=== PATIENT | male | born 1955 | race Caucasian/White ===

== ENCOUNTER → 2021-01-16 10:35 | Outpatient (CLI) | payer MEDICARE, OTHER, SELFPAY ==
--- NOTE | ~2021-01-16 | MR_ITS ---
EXAMINATION: MR knee RT wo con DATE: 01/16/2021 11:43 INDICATION: A couple months of intermittent generalized right knee pain TECHNIQUE: Magnetic resonance imaging (MRI) of the right knee was performed without intravenous contr ast. Sequences included coronal PD-weighted FSE, coronal PD-weighted FS FSE, sagittal T2-weighted FS E, sagittal PD-weighted FS FSE and axial PD weighted fat saturated FSE. COMPARISON: 10/08/2012 FINDINGS: Medial compartment: Again seen is a smaller than normal body and posterior horn of the medial meniscus consistent with pr ior partial meniscectomy. No significant change in linear mild increased signal extending to the supe rior articular surface at the peripheral third of the posterior horn of the medial meniscus which rem ains of less than fluid signal intensity and equivocal for residual versus previously repaired longit udinal horizontal tear. Relatively stable appearance of partial-thickness cartilage loss throughout t he weightbearing medial femoral condyle and medial tibial plateau. This involves greater than 50% the cartilage thickness at the central weightbearing medial femoral condyle with mild underlying cortica l irregularity and minimal subarticular edema. Additional marrow edema underlying small central osteo phytes at the site of additional deep chondral ulceration at the lateral aspect of the anterior weigh tbearing medial femoral condyle. Tiny focus of subarticular edema at the central aspect of the medial tibial plateau. Lateral compartment: Lateral meniscus is normal. Interval progression of partial-thickness cartilage loss along the latera l tibial plateau with relatively smooth chondral surface and along the weightbearing lateral femoral condyle where there is also deep chondral fissuring and scattered small central/subchondral osteophyt es but no subarticular edema. Patellofemoral compartment: Slight progression in partial-thickness cartilage loss throughout the patella most severe at the ceph alad aspect of the lateral facet where it appears full/near full-thickness with mild underlying subar ticular edema. Diffuse partial thickness trochlear cartilage loss with more focal deep chondral ulcer ation. With mild subarticular edema at the cephalad aspect of the lateral trochlea and with small gricelda tral osteophytes at the inferior aspect of the medial trochlea. Ligaments and tendons: The anterior cruciate ligament demonstrates a normal angle relative to Blumenstaat's line. It appears thickened with increased intrasubstance signal surrounding intact appearing linear fibers with a ce lery stalk appearance consistent with mucoid degeneration without definitive tear. The posterior cru ciate ligament is normal. The medial collateral ligament and fibular collateral ligament complex are normal. Unchanged moderate patellar tendinopathy. Mild distal quadriceps tendinopathy with small enth esophyte at its patellar insertion. The visualized medial and lateral hamstring tendons as well as th e iliotibial band are normal. Fluid: Physiologic amount of fluid in the joint space. No loose osteochondral bodies identified. Osseous/other: Bone alignment is normal. No fracture or abnormal marrow replacing process. Moderate-sized marginal o steophytes at all 3 compartments. Bands of scarring in Hoffa's fat pad at the medial and lateral side s of the patellar tendon suggesting prior arthroscopy. IMPRESSION: 1. Small body and posterior horn of the medial meniscus consistent with likely prior partial meniscec mago. Unchanged tear versus repaired longitudinal horizontal tear at the peripheral third of the post erior horn. Correlate with surgical history. 2. 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 3. 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
== END ==
DX: M17.11 Unilateral primary osteoarthritis, right knee (principal)
CPT/HCPCS: 73721